=== PATIENT | female | born 1980 ===

== ENCOUNTER → 2020-07-23 | Outpatient (CLI) | payer OTHER ==
[~2020-07-23] MED LIST: ZYRTEC10 MG PO
== END | disposition home or self-care (01) ==
LOC: PRENATAL 14:16
PROVIDERS: ATTEND Obstetrics & Gynecology Maternal & Fetal Medicine
DX: Z36.89 Encounter for other specified antenatal screening (principal); O36.80X1 Pregnancy with inconclusive fetal viability, fetus 1; O09.521 Supervision of elderly multigravida, first trimester; Z3A.13 13 weeks gestation of pregnancy

== ENCOUNTER → 2020-09-15 | Outpatient (CLI) | payer OTHER | END | disposition home or self-care (01) | LOC: PRENATAL 13:00 | PROVIDERS: ATTEND Obstetrics & Gynecology Maternal & Fetal Medicine | DX: O35.0XX1 Maternal care for (suspected) central nervous system malformation in fetus, fetus 1 (principal); O35.3XX1 Maternal care for (suspected) damage to fetus from viral disease in mother, fetus 1; O98.512 Other viral diseases complicating pregnancy, second trimester; O09.512 Supervision of elderly primigravida, second trimester; Z36.89 Encounter for other specified antenatal screening; Z3A.20 20 weeks gestation of pregnancy ==

== ENCOUNTER 2021-01-14 14:17 | Outpatient (CLI) | payer OTHER | END 2021-01-14 17:20 | disposition home or self-care (01) | LOC: OBS/DEL 14:17 | PROVIDERS: ATTEND Specialist | DX: O26.843 Uterine size-date discrepancy, third trimester (principal); O36.8130 Decreased fetal movements, third trimester, not applicable or unspecified; Z3A.37 37 weeks gestation of pregnancy ==

== ENCOUNTER 2021-01-19 02:38 | Inpatient (IN) | payer OTHER ==
[~2021-01-19] VITALS: Ht 162.6 cm; Wt 2.7 kg
[2021-01-19] MEDS ORDERED: PRENATAL TABLE1 EAC1 PO (02:45)
[2021-01-19] MEDS ORDERED: FOLIC ACID0.8 M1 PO (02:46)
== END 2021-01-22 15:53 | disposition home or self-care (01) | DRG 788 ==
LOC: OBS/DEL 02:38 → OB/GYN 05:20 → LDR 05:20 → O/R 09:09 → OB/GYN 10:39
PROVIDERS: ADMIT Specialist; ATTEND Specialist
PROC: 4A1HXFZ Monitoring of Products of Conception, Cardiac Rhythm, External Approach (ICD-10-PCS; 2021-01-19)
PROC: 10D00Z1 Extraction of Products of Conception, Low, Open Approach (ICD-10-PCS; principal; 2021-01-19 07:00)
DX: O64.5XX0 Obstructed labor due to compound presentation, not applicable or unspecified (principal); O42.02 Full-term premature rupture of membranes, onset of labor within 24 hours of rupture; Z3A.38 38 weeks gestation of pregnancy; Z37.0 Single live birth